=== PATIENT | male | born 1930 | race Caucasian/White ===

== ENCOUNTER → 2017-07-22 | Outpatient (CLI) | payer OTHER | LOC: RAD 11:20 | DX: J44.9 Chronic obstructive pulmonary disease, unspecified (principal); J84.9 Interstitial pulmonary disease, unspecified ==

== ENCOUNTER → 2017-07-31 | Outpatient (CLI) | payer OTHER | LOC: CAT 11:15 | DX: K86.3 Pseudocyst of pancreas (principal); K76.0 Fatty (change of) liver, not elsewhere classified; J90 Pleural effusion, not elsewhere classified ==